=== PATIENT | male | born 1995 | race Caucasian/White ===

== ENCOUNTER 2019-12-16 15:07 | Emergency (ER) | payer OTHER ==
[~2019-12-16] VITALS: Ht 190.5 cm; Wt 108.9 kg
[~2019-12-16 15:07] MED LIST: ALBU8HFA2 INH; ALBU90OI61 INH; AZIT250 PO; Bactrim Ds Tab1 EACH PO; CEPH500 PO; CODACE30 PO; CRUTCH4 USE; CYCL10 PO; HYDACE5 PO; HYDHCL10 PO; IBUP800 PO; METPRE4DP PO; Naprosyn500 MG PO; Norco 5-325 Ta1 EACH PO; Omeprazole20 M1 PO; PERM5TC TOP; PRED20 PO; PROM25 PO; RXCODACET PO
[2019-12-16 15:28] LABS: BASOPHILS ABSOLUTE AUTO 0.05 K/mm3 (0.00-0.23); BASOPHILS PERCENT AUTO 1 % (0-2); EOSINOPHILS ABSOLUTE AUTO 0.32 K/mm3 (0.00-0.68); EOSINOPHILS PERCENT AUTO 4 % (0-6); Hematocrit 44.5 % (37.0-53.0); Hemoglobin 15.5 g/dL (13.5-17.5); IMMATURE GRAN ABSOLUTE AUTO 0.02 K/mm3 (0.00-0.10); IMMATURE GRAN PERCENT AUTO 0 % (0-1); LYMPHOCYTES ABSOLUTE AUTO 2.71 K/mm3 (0.84-5.20); LYMPHOCYTES PERCENT AUTO 36 % (21-46); MONOCYTES PERCENT AUTO 8 % (4-13); Mean Corpuscular HGB 30.6 pg (26.0-34.0); Mean Corpuscular HGB Conc 34.8 g/dL (31.5-36.5); Mean Corpuscular Volume 88 fL (80-100); Mean Platelet Volume 8.9 fL (9.1-12.4); NEUTROPHILS PERCENT AUTO 51 % (41-73); Platelet Count 235 K/mm3 (150-400); RDW Coefficient Variation 11.5 % (11.7-14.2); RDW Standard Deviation 36.9 fL (35.1-46.3); Red Blood Cell Count 5.07 M/mm3 (4.30-5.90)
[2019-12-16 15:39] LABS: Alanine Aminotransfer (ALT/SGP 89 U/L (12-78); Albumin, Blood 4.7 g/dL (3.4-5.0); Albumin/Globulin Ratio 1.4 (0.8-1.8); Alk Phos 64 U/L (50-136); Anion Gap 9 mmol/L (6-16); Aspartate Aminotrans (AST/SGOT 72 U/L (12-37); Bilirubin, Total 0.3 mg/dL (0.1-1.0); Blood Urea Nitrogen 8 mg/dL (8-24); Bun/Creatinine Ratio 10.2 (12.0-20.0); CO2, Blood 27 mmol/L (21-32); Calcium, Blood 8.8 mg/dL (8.5-10.1); Chloride, Blood 104 mmol/L (98-108); Creatinine, Blood 0.79 mg/dL (0.60-1.20); Ethanol (Alcohol), Blood, Med 191 mg/dL; Globulin, Blood 3.4 g/dL (2.2-4.0); Glomerular Filtration Rate >60 (60-); Glucose, Blood 95 mg/dL (70-99); Potassium, Blood 3.8 mmol/L (3.5-5.5); Sodium, Blood 140 mmol/L (136-145); Total Protein, Blood 8.1 g/dL (6.4-8.2)
[2019-12-16 15:45] LABS: International Normalized Ratio 0.96; Prothrombin Time Results 10.3 Sec (9.7-11.5)
== END 2019-12-16 16:55 | disposition home or self-care (01) ==
LOC: ER 15:07
PROVIDERS: Emergency Medicine
DX: S71.132A Puncture wound without foreign body, left thigh, initial encounter (principal); F10.129 Alcohol abuse with intoxication, unspecified; F17.210 Nicotine dependence, cigarettes, uncomplicated; W34.09XA Accidental discharge from other specified firearms, initial encounter
CPT/HCPCS: 73706; 80053; 85025; 85610; 85730; 86850; 86900; 86901; 96365-59; 96375-59; 99285-25; G0480; J0690; J3010; J7030; Q9967

== ENCOUNTER 2020-03-31 16:22 | Emergency (ER) | payer OTHER ==
[~2020-03-31] VITALS: Ht 190.5 cm; Wt 99.8 kg
[2020-04-01] MEDS ORDERED: Prilosec Otc20 MG PO (23:37)
== END 2020-03-31 19:01 | disposition left against medical advice (07) ==
LOC: ER 16:22
DX: K92.0 Hematemesis (principal); Z53.21 Procedure and treatment not carried out due to patient leaving prior to being seen by health care provider
CPT/HCPCS: 74177; 99284-25; Q9967

== ENCOUNTER 2020-04-01 23:12 | Emergency (ER) | payer OTHER ==
[~2020-04-01] VITALS: Ht 190.5 cm; Wt 108.9 kg
[2020-04-01] MEDS ORDERED: Prilosec Otc20 MG PO (23:37)
[2020-04-01 23:50] LABS: Calcium, Ionized (POC) 1.05 mmol/L (1.10-1.46); Chloride (POC) 101 mmol/L (98-108); Glucose (ISTAT POC) 99 mg/dL (70-99); Hemoglobin (POC) 16.3 g/dL (13.5-17.5); Potassium (POC) 3.7 mmol/L (3.5-5.5); Sodium (POC) 137 mmol/L (135-148); Total CO2 (POC) 22 mmol/L (21-32)
== END 2020-04-02 00:32 | disposition home or self-care (01) ==
LOC: ER 23:12
PROVIDERS: Emergency Medicine
DX: K29.71 Gastritis, unspecified, with bleeding (principal); F17.210 Nicotine dependence, cigarettes, uncomplicated
CPT/HCPCS: 36415; 80047; 85014; 99283

== ENCOUNTER 2023-02-26 09:20 | Emergency (ER) | payer OTHER ==
[~2023-02-26] VITALS: Ht 190.5 cm; Wt 113.4 kg
[~2023-02-26 09:20] MED LIST changes: +Prilosec Otc20 MG PO
[2023-02-26 09:33] VITALS: BP 132/89
== END 2023-02-26 10:54 | disposition home or self-care (01) ==
LOC: ER 09:20
DX: S93.402A Sprain of unspecified ligament of left ankle, initial encounter (principal); F17.210 Nicotine dependence, cigarettes, uncomplicated; X58.XXXA Exposure to other specified factors, initial encounter; Y93.72 Activity, wrestling
CPT/HCPCS: 73610; 99283-25; A9270

== ENCOUNTER 2023-03-26 18:57 | Emergency (ER) | payer OTHER ==
[~2023-03-26] VITALS: Ht 190.5 cm; Wt 113.4 kg
[2023-03-26 19:01] VITALS: BP 162/105
[2023-03-26] MEDS ORDERED: MORP15ER PO (19:52)
[2023-03-26] MEDS ORDERED: OXYC5 PO (19:52)
[2023-03-27] MEDS ORDERED: OXYC5 PO (12:48)
[2023-03-27] MEDS ORDERED: MORP15ER PO (12:49)
[2023-03-28] MEDS ORDERED: MORP15ER PO (11:02)
== END 2023-03-26 20:00 | disposition home or self-care (01) ==
LOC: ER 18:57
DX: S43.102A Unspecified dislocation of left acromioclavicular joint, initial encounter (principal); V00.131A Fall from skateboard, initial encounter; Z79.1 Long term (current) use of non-steroidal anti-inflammatories (NSAID); F17.210 Nicotine dependence, cigarettes, uncomplicated
CPT/HCPCS: 73030; 96374; 99284-25; A9270; J2270